=== PATIENT | female | born 1930 | race Caucasian/White ===

== ENCOUNTER 2016-09-07 15:15 | Emergency (ER) | payer OTHER, BC ==
[~2016-09-07] VITALS: Ht 137.2 cm; Wt 45.1 kg
[~2016-09-07 15:15] MED LIST: CENTRUM SILVER1 EAC4 PO; CYANOCOBALAM1000 MCG PO; D3 + K2 DOTS 11 EACH PO; DIOVAN320 MG PO; ELIQUIS5 MG PO; FAMOTIDINE20 MG PO; FOLBIC RF TABL1 EACH PO; FOLIC ACID1 MG PO; LASIX20 MG PO; LEVO-T125 MCG PO; METOPROLOL SUC100 MG PO; METOPROLOL SUCC50 MG PO; TYLENOL REGULA325 MG PO; VITAMIN D31000 UNIT PO
[2016-09-07 16:39] LABS: CHLORIDE 105 mEq/L (99-109); POTASSIUM 4.8 mEq/L (3.7-5.4); SODIUM 139 mEq/L (136-147)
[2016-09-07 16:41] LABS: GLUCOSE 97 mg/dL (70-99)
[2016-09-07 16:42] LABS: ANION GAP 15 MEQ/L (2-14)
[2016-09-07 16:44] LABS: BASOPHIL COUNT 0.1 K/uL (0-0.1); EOSINOPHIL (%) 3.4 % (0-5); EOSINOPHIL COUNT 0.2 K/uL (0-0.3); GFR ESTIMATE (CALCULATED) 28 mL/min/; HEMATOCRIT 17.1 % (36.0-46.0); IMMATURE GRANULOCYTE (%) 0.4 % (0.0-0.7); IMMATURE GRANULOCYTE COUNT 0.3 K/uL; LYMPHOCYTE COUNT 1.9 K/uL (1.0-2.8); MCH 35.9 PG (29.0-34.0); MCHC 32.7 G/DL (30.0-36.0); MCV 110.3 FL (83-99); MONOCYTE (%) 10.2 % (3-12); MONOCYTE COUNT 0.7 K/uL (0-0.8); NEUTROPHIL (%) 57.7 % (45-76); NEUTROPHIL COUNT 4.1 K/uL (1.8-6.4); RBC DIS.WIDTH-CV 25.8 % (11.8-14.6); RBC DIS.WIDTH-SD 89.4 % (39-53); RED BLOOD COUNT 1.56 M/uL (3.80-5.20)
[2016-09-07 16:45] LABS: UREA NITROGEN (BUN) 38 mg/dL (9-23)
[2016-09-07 16:53] LABS: TROP-I INTERPRETATION NEGATIVE; TROPONIN-I 0.13 ng/mL (0.0-0.30)
[2016-09-07 17:28] LABS: HEMATOLOGY COMMENT 1 SMEAR COMPATIBLE; MEAN PLAT.VOLUME 11.7 uM^3 (9.5-12.4); PLAT.SUFFICIENCY INCREASED; PLATELET COUNT 583 K/uL (156-360); USER ID NPD
[2016-09-07] MEDS ORDERED: TYLENOL ARTHRI650 MG PO (18:57)
[2016-09-07] MEDS ORDERED: LASIX40 MG PO (18:59)
[2016-09-07] MEDS ORDERED: POTASSIUM CHLO10 ME3 PO (18:59)
[2016-09-07] MEDS ORDERED: FEOSOL325 MG PO (18:59)
[2016-09-07 20:48] VITALS: BP 120/57
[2016-09-10] MEDS ORDERED: CENTRUM SILVER1 EAC3 PO (09:50)
[2016-09-10] MEDS ORDERED: COUMADIN1 MG PO (09:51)
== END 2016-09-07 21:18 | disposition home or self-care (01) ==
LOC: EME 15:15
PROVIDERS: Emergency Medicine
DX: D64.9 Anemia, unspecified (principal); Z86.718 Personal history of other venous thrombosis and embolism; Z79.01 Long term (current) use of anticoagulants; I50.9 Heart failure, unspecified; E03.9 Hypothyroidism, unspecified; I10 Essential (primary) hypertension
CPT/HCPCS: 80048; 84484; 85025; 86850; 86860; 86870; 86880; 86900; 86901; 86905; 86920; 99281; 99284

== ENCOUNTER → 2016-09-10 | Outpatient (CLI) | payer OTHER, BC ==
[~2016-09-10] VITALS: Ht 137.2 cm; Wt 45.1 kg
[2016-09-10] VITALS (9 sets, daily range): BP systolic 122–154; BP diastolic 57–68
[~2016-09-10] MED LIST changes: +CENTRUM SILVER1 EAC3 PO; +COUMADIN1 MG PO; +FEOSOL325 MG PO; +LASIX40 MG PO; +POTASSIUM CHLO10 ME3 PO; +TYLENOL ARTHRI650 MG PO
[2016-09-10 16:06] LABS: HEMATOCRIT 23.2 % (36.0-46.0); MCH 33.2 PG (29.0-34.0); MCHC 33.6 G/DL (30.0-36.0); MEAN PLAT.VOLUME 11.2 uM^3 (9.5-12.4); PLATELET COUNT 493 K/uL (156-360); RBC DIS.WIDTH-SD 72.8 % (39-53); WHITE BLOOD COUNT 5.6 K/uL (4.1-10.2)
[2016-09-10 16:07] LABS: MCV 98.7 FL (83-99); RED BLOOD COUNT 2.35 M/uL (3.80-5.20)
== END ==
LOC: IVINF 09-08 10:00
PROVIDERS: Emergency Medicine
DX: D51.0 Vitamin B12 deficiency anemia due to intrinsic factor deficiency (principal)
CPT/HCPCS: 36430; 85027; 86850; 86870; 86900; 86901; 86905; 86920; 86999; P9016

== ENCOUNTER 2016-12-26 15:17 | Inpatient (IN) | payer OTHER, BC ==
[~2016-12-26] VITALS: Ht 139.7 cm; Wt 42.0 kg
[2016-12-26] VITALS (7 sets, daily range): BP systolic 112–146; BP diastolic 50–70
[~2016-12-26 15:17] MED LIST changes: +ELIQUIS2.5 MG PO; +IRON325 MG PO; +VALSARTAN320 MG PO
[2016-12-26 16:54] LABS: CHLORIDE 108 mEq/L (99-109); POTASSIUM 4.1 mEq/L (3.7-5.4); SODIUM 141 mEq/L (136-147)
[2016-12-26 16:56] LABS: GLUCOSE 117 mg/dL (70-99)
[2016-12-26 16:57] LABS: ANION GAP 13 MEQ/L (2-14)
[2016-12-26 17:00] LABS: GFR ESTIMATE (CALCULATED) 32 mL/min/
[2016-12-26 17:01] LABS: UREA NITROGEN (BUN) 48 mg/dL (9-23)
[2016-12-26 17:08] LABS: PLATELET COUNT 618 K/uL (156-360)
[2016-12-26 18:07] LABS: HEMATOCRIT 15.6 % (36.0-46.0); MCHC 30.8 G/DL (30.0-36.0); MCV 113.9 FL (83-99); PLAT.SUFFICIENCY INCREASED; RBC DIS.WIDTH-SD 110.2 % (39-53); RED BLOOD COUNT 1.37 M/uL (3.80-5.20); WHITE BLOOD COUNT 7.4 K/uL (4.1-10.2)
[2016-12-26] MEDS ORDERED: IRON325 M1 PO (19:32)
[2016-12-26] MEDS ORDERED: SYNTHROID125 MCG PO (19:35)
[2016-12-27] VITALS (12 sets, daily range): BP systolic 99–139; BP diastolic 51–82
[2016-12-27 07:20] LABS: METH RESISTANT S AUREUS PCR NEGATIVE (NEGATIVE); PROBE CHECK PASS; SPECIMEN PROCESSING CONTROL PASS
[2016-12-27 07:49] LABS: BASOPHIL COUNT 0.1 K/uL (0-0.1); EOSINOPHIL (%) 3.2 % (0-5); EOSINOPHIL COUNT 0.2 K/uL (0-0.3); HEMATOCRIT 24.3 % (36.0-46.0); IMMATURE GRANULOCYTE (%) 0.4 % (0.0-0.7); INSTRUMENT ABS NEUTROPHIL CT 4.7 K/uL; LYMPHOCYTE COUNT 1.6 K/uL (1.0-2.8); MCH 31.3 PG (29.0-34.0); MCHC 33.3 G/DL (30.0-36.0); MEAN PLAT.VOLUME 11.7 uM^3 (9.5-12.4); MONOCYTE (%) 12.7 % (3-12); NEUTROPHIL (%) 62.3 % (45-76); NEUTROPHIL COUNT 4.7 K/uL (1.8-6.4); PLATELET COUNT 521 K/uL (156-360); RBC DIS.WIDTH-CV 25.7 % (11.8-14.6); WHITE BLOOD COUNT 7.6 K/uL (4.1-10.2)
[2016-12-27 07:58] LABS: MCV 93.8 FL (83-99); RED BLOOD COUNT 2.59 M/uL (3.80-5.20)
[2016-12-28 03:30] VITALS: BP 104/51
[2016-12-28 07:10] VITALS: BP 105/51
[2016-12-28 07:57] LABS: BASOPHIL COUNT 0.1 K/uL (0-0.1); EOSINOPHIL (%) 2.1 % (0-5); EOSINOPHIL COUNT 0.2 K/uL (0-0.3); HEMATOCRIT 27.5 % (36.0-46.0); IMMATURE GRANULOCYTE (%) 0.6 % (0.0-0.7); IMMATURE GRANULOCYTE COUNT 0.1 K/uL; INSTRUMENT ABS NEUTROPHIL CT 7.5 K/uL; LYMPHOCYTE COUNT 1.4 K/uL (1.0-2.8); MCH 31.8 PG (29.0-34.0); MCHC 33.5 G/DL (30.0-36.0); MCV 95.2 FL (83-99); MEAN PLAT.VOLUME 11.9 uM^3 (9.5-12.4); MONOCYTE (%) 11.1 % (3-12); MONOCYTE COUNT 1.2 K/uL (0-0.8); NEUTROPHIL (%) 72.2 % (45-76); NEUTROPHIL COUNT 7.5 K/uL (1.8-6.4); PLATELET COUNT 558 K/uL (156-360); RBC DIS.WIDTH-CV 26.2 % (11.8-14.6); RED BLOOD COUNT 2.89 M/uL (3.80-5.20)
[2016-12-28 07:59] LABS: WHITE BLOOD COUNT 10.3 K/uL (4.1-10.2)
== END 2016-12-28 15:42 | disposition home or self-care (01) | DRG 812 ==
LOC: EME 15:17 → 4EAST 20:48 → EDOF 20:48 → 4EAST 22:02
PROVIDERS: Emergency Medicine; Internal Medicine
PROC: 30233N1 Transfusion of Nonautologous Red Blood Cells into Peripheral Vein, Percutaneous Approach (ICD-10-PCS; principal; 2016-12-26)
DX: D46.9 Myelodysplastic syndrome, unspecified (principal); I12.9 Hypertensive chronic kidney disease with stage 1 through stage 4 chronic kidney disease, or unspecified chronic kidney disease; N18.3 Chronic kidney disease, stage 3 (moderate); E03.9 Hypothyroidism, unspecified; Z86.718 Personal history of other venous thrombosis and embolism; K21.9 Gastro-esophageal reflux disease without esophagitis; M19.90 Unspecified osteoarthritis, unspecified site
CPT/HCPCS: 80048; 82607; 82728; 82746; 84466; 85025; 85027; 86860; 86870; 86880; 86900; 86901; 86905; 86920; 87641; 93005; 99281; 99285; P9016

== ENCOUNTER 2017-02-26 09:26 | Emergency (ER) | payer OTHER, BC ==
[2017-02-26] VITALS (8 sets, daily range): BP systolic 102–153; BP diastolic 41–60
[~2017-02-26] VITALS: Ht 139.7 cm; Wt 45.6 kg
[~2017-02-26 09:26] MED LIST changes: +IRON325 M1 PO; +SYNTHROID125 MCG PO
[2017-02-26 10:37] LABS: CHLORIDE 106 mEq/L (99-109); POTASSIUM 4.2 mEq/L (3.7-5.4); SODIUM 141 mEq/L (136-147)
[2017-02-26 10:39] LABS: GLUCOSE 113 mg/dL (70-99); INTER. NORMALIZED RATIO 1.1; PROTHROMBIN TIME 10.9 (9.2-11.2); PTT 26.3 (25-32)
[2017-02-26 10:40] LABS: ANION GAP 12 MEQ/L (2-14)
[2017-02-26 10:43] LABS: GFR ESTIMATE (CALCULATED) 32 mL/min/; UREA NITROGEN (BUN) 34 mg/dL (9-23)
[2017-02-26 10:49] LABS: EOSINOPHIL (%) 3.2 % (0-5); EOSINOPHIL COUNT 0.3 K/uL (0-0.3); HEMATOCRIT 16.4 % (36.0-46.0); IMMATURE GRANULOCYTE (%) 0.6 % (0.0-0.7); IMMATURE GRANULOCYTE COUNT 0.1 K/uL; INSTRUMENT ABS NEUTROPHIL CT 6.8 K/uL; LYMPHOCYTE COUNT 1.9 K/uL (1.0-2.8); MCH 34.4 PG (29.0-34.0); MCHC 31.7 G/DL (30.0-36.0); MCV 108.6 FL (83-99); MEAN PLAT.VOLUME 11.7 uM^3 (9.5-12.4); MONOCYTE (%) 11.3 % (3-12); MONOCYTE COUNT 1.2 K/uL (0-0.8); NEUTROPHIL (%) 66.6 % (45-76); NEUTROPHIL COUNT 6.8 K/uL (1.8-6.4); PLATELET COUNT 684 K/uL (156-360); RBC DIS.WIDTH-CV 28.2 % (11.8-14.6); RBC DIS.WIDTH-SD 101.4 % (39-53); RED BLOOD COUNT 1.51 M/uL (3.80-5.20); WHITE BLOOD COUNT 10.2 K/uL (4.1-10.2)
== END 2017-02-26 16:43 | disposition home or self-care (01) ==
LOC: EME 09:26
PROVIDERS: Emergency Medicine
PROC: 30233N1 Transfusion of Nonautologous Red Blood Cells into Peripheral Vein, Percutaneous Approach (ICD-10-PCS; principal; 2017-02-26)
DX: D64.9 Anemia, unspecified (principal); Z86.718 Personal history of other venous thrombosis and embolism; K21.9 Gastro-esophageal reflux disease without esophagitis; E03.9 Hypothyroidism, unspecified; Z90.49 Acquired absence of other specified parts of digestive tract
CPT/HCPCS: 80048; 85025; 85610; 85730; 86860; 86870; 86880; 86900; 86901; 86920; 86999; 99281; 99285; P9016

== ENCOUNTER 2017-04-25 09:16 | Observation (INO) | payer OTHER, BC ==
[~2017-04-25] VITALS: Ht 137.2 cm; Wt 45.2 kg
[~2017-04-25 09:16] MED LIST changes: +K-TAB10 MEQ PO; -POTASSIUM CHLO10 ME3 PO
[2017-04-25 10:38] LABS: EOSINOPHIL (%) 2.6 % (0-5); EOSINOPHIL COUNT 0.1 K/uL (0-0.3); HEMATOCRIT 14.4 % (36.0-46.0); IMMATURE GRANULOCYTE (%) 0.4 % (0.0-0.7); INSTRUMENT ABS NEUTROPHIL CT 3.7 K/uL; LYMPHOCYTE COUNT 1.1 K/uL (1.0-2.8); MCH 34.6 PG (29.0-34.0); MCHC 31.9 G/DL (30.0-36.0); MCV 108.3 FL (83-99); MEAN PLAT.VOLUME 11.7 uM^3 (9.5-12.4); MONOCYTE (%) 9.5 % (3-12); MONOCYTE COUNT 0.5 K/uL (0-0.8); NEUTROPHIL (%) 67.2 % (45-76); NEUTROPHIL COUNT 3.7 K/uL (1.8-6.4); PLATELET COUNT 528 K/uL (156-360); RBC DIS.WIDTH-CV 26.2 % (11.8-14.6); RBC DIS.WIDTH-SD 93.9 % (39-53); RED BLOOD COUNT 1.33 M/uL (3.80-5.20); WHITE BLOOD COUNT 5.5 K/uL (4.1-10.2)
[2017-04-25 10:42] LABS: CHLORIDE 108 mEq/L (99-109); SODIUM 139 mEq/L (136-147)
[2017-04-25 10:44] LABS: GLUCOSE 99 mg/dL (70-99)
[2017-04-25 10:45] LABS: ANION GAP 11 MEQ/L (2-14)
[2017-04-25 10:48] LABS: GFR ESTIMATE (CALCULATED) 41 mL/min/
[2017-04-25 10:49] LABS: UREA NITROGEN (BUN) 38 mg/dL (9-23)
[2017-04-25 14:00] VITALS: BP 126/56
[2017-04-25 15:30] VITALS: BP 134/60
[2017-04-25 18:36] VITALS: BP 127/56
[2017-04-26] VITALS (17 sets, daily range): BP systolic 116–150; BP diastolic 53–70
[2017-04-26 17:09] LABS: HEMATOCRIT 22.8 % (36.0-46.0)
[2017-04-27] VITALS (7 sets, daily range): BP systolic 145–163; BP diastolic 63–70
== END 2017-04-27 18:12 | disposition home or self-care (01) ==
LOC: EME 09:16 → EDOF 11:32 → 2EAST 11:32 → EDOF 11:32 → ENRESERV 11:39 → 2EAST 13:50
PROVIDERS: Emergency Medicine; Internal Medicine Hematology & Oncology
PROC: 30233N1 Transfusion of Nonautologous Red Blood Cells into Peripheral Vein, Percutaneous Approach (ICD-10-PCS; principal; 2017-04-26)
DX: D46.9 Myelodysplastic syndrome, unspecified (principal); D63.8 Anemia in other chronic diseases classified elsewhere; K21.9 Gastro-esophageal reflux disease without esophagitis; M19.90 Unspecified osteoarthritis, unspecified site; E03.9 Hypothyroidism, unspecified; I50.9 Heart failure, unspecified; Z79.01 Long term (current) use of anticoagulants
CPT/HCPCS: 80048; 85014; 85018; 85025; 86850; 86860; 86870; 86880; 86900; 86901; 86905; 86920; 99281; 99284; G0378; J1644; P9016

== ENCOUNTER 2017-06-21 15:45 | Observation (INO) | payer OTHER, BC ==
[~2017-06-21] VITALS: Ht 144.8 cm; Wt 45.7 kg
[2017-06-21 16:31] LABS: EOSINOPHIL (%) 3.2 % (0-5); EOSINOPHIL COUNT 0.2 K/uL (0-0.3); HEMATOCRIT 13.6 % (36.0-46.0); IMMATURE GRANULOCYTE (%) 0.8 % (0.0-0.7); IMMATURE GRANULOCYTE COUNT 0.1 K/uL; INSTRUMENT ABS NEUTROPHIL CT 3.9 K/uL; LYMPHOCYTE COUNT 1.6 K/uL (1.0-2.8); MCH 33.8 PG (29.0-34.0); MCHC 32.4 G/DL (30.0-36.0); MCV 104.6 FL (83-99); MEAN PLAT.VOLUME 11.6 uM^3 (9.5-12.4); MONOCYTE (%) 11.7 % (3-12); MONOCYTE COUNT 0.8 K/uL (0-0.8); NEUTROPHIL (%) 60.2 % (45-76); NEUTROPHIL COUNT 3.9 K/uL (1.8-6.4); PLATELET COUNT 567 K/uL (156-360); RBC DIS.WIDTH-CV 24.7 % (11.8-14.6); RBC DIS.WIDTH-SD 86.7 % (39-53); WHITE BLOOD COUNT 6.5 K/uL (4.1-10.2)
[2017-06-21 16:32] LABS: CHLORIDE 108 mEq/L (99-109); SODIUM 140 mEq/L (136-147)
[2017-06-21 16:33] LABS: GLUCOSE 113 mg/dL (70-99)
[2017-06-21 16:35] LABS: ANION GAP 9 MEQ/L (2-14)
[2017-06-21 16:37] LABS: GFR ESTIMATE (CALCULATED) 28 mL/min/
[2017-06-21 16:38] LABS: UREA NITROGEN (BUN) 39 mg/dL (9-23)
[2017-06-21 20:41] VITALS: BP 129/63
[2017-06-21 21:09] VITALS: BP 132/60
[2017-06-21 22:09] VITALS: BP 126/54
[2017-06-21 22:34] LABS: URIC ACID 8.4 mg/dL (3.1-9.2)
[2017-06-22 00:04] VITALS: BP 144/66
[2017-06-22 01:00] LABS: INTER. NORMALIZED RATIO 1.4; PROTHROMBIN TIME 15.7 SEC (10.2-12.9)
[2017-06-22 01:02] LABS: PTT 31.5 SEC (25-37)
[2017-06-22 01:04] LABS: TOTAL BILIRUBIN 1.1 mg/dL (0.0-1.0)
[2017-06-22 01:05] LABS: ALKALINE PHOSPHATASE 88 IU/L (3-129)
[2017-06-22 01:07] LABS: DIRECT BILIRUBIN 0.4 mg/dL (0.0-0.3)
[2017-06-22 01:30] VITALS: BP 144/63
[2017-06-22 01:45] VITALS: BP 137/63
[2017-06-22 02:30] VITALS: BP 123/78
[2017-06-22 03:05] LABS: ADD MIUA? YES; BILIRUBIN NEGATIVE; BLOOD SMALL; COLOR YELLOW ((YELLOW)); GLUCOSE (STRIP) NEGATIVE; KETONES NEGATIVE; LEUKOCYTES LARGE; NITRITE NEGATIVE; PROTEIN (STRIP) NEGATIVE; SPECIFIC GRAVITY 1.005 (1.000-1.030); UROBILINOGEN 0.2 MG/DL (0.2-1.0)
[2017-06-22 03:09] LABS: BACTERIA RARE /HPF; EPITHELIAL CELLS NONE SEEN /HPF; MUCUS NONE SEEN /LPF; WHITE BLOOD CELLS TNTC /HPF (0-5); WHITE BLOOD CELLS CLUMP RARE /HPF (0-5)
[2017-06-22 04:15] VITALS: BP 123/60
[2017-06-22 05:48] LABS: HEMATOCRIT 21.5 % (36.0-46.0); MCH 31.6 PG (29.0-34.0); MEAN PLAT.VOLUME 11.3 uM^3 (9.5-12.4); PLATELET COUNT 522 K/uL (156-360); RBC DIS.WIDTH-CV 20.1 % (11.8-14.6); RBC DIS.WIDTH-SD 53.1 % (39-53); WHITE BLOOD COUNT 7.4 K/uL (4.1-10.2)
[2017-06-22 05:49] LABS: MCV 95.6 FL (83-99); RED BLOOD COUNT 2.25 M/uL (3.80-5.20)
[2017-06-22 06:08] LABS: ANION GAP 10 MEQ/L (2-14); CHLORIDE 108 MEQ/L (99-109); GFR ESTIMATE (CALCULATED) 35 mL/min/; GLUCOSE 87 mg/dL (70-99); POTASSIUM 4.3 MEQ/L (3.7-5.4); SAMPLE HEMOLYSIS CHECK 0; SAMPLE ICTERIC CHECK 0; SAMPLE LIPEMIA CHECK 0; SODIUM 142 MEQ/L (136-147); UREA NITROGEN (BUN) 34 mg/dL (9-23)
[2017-06-22 07:25] VITALS: BP 145/63
== END 2017-06-22 14:13 | disposition home or self-care (01) ==
LOC: EME → EDBD 15:45 → EDOF 21:41 → ENRESERV 21:48 → 5WEST 23:58
PROVIDERS: Emergency Medicine; Hospitalist
PROC: 30233N1 Transfusion of Nonautologous Red Blood Cells into Peripheral Vein, Percutaneous Approach (ICD-10-PCS; principal; 2017-06-22)
DX: D46.9 Myelodysplastic syndrome, unspecified (principal); D63.8 Anemia in other chronic diseases classified elsewhere; I13.0 Hypertensive heart and chronic kidney disease with heart failure and stage 1 through stage 4 chronic kidney disease, or unspecified chronic kidney disease; I50.9 Heart failure, unspecified; N17.9 Acute kidney failure, unspecified; N18.3 Chronic kidney disease, stage 3 (moderate); Z86.718 Personal history of other venous thrombosis and embolism; Z79.01 Long term (current) use of anticoagulants; E03.9 Hypothyroidism, unspecified; K21.9 Gastro-esophageal reflux disease without esophagitis; R50.9 Fever, unspecified; D47.3 Essential (hemorrhagic) thrombocythemia; M19.90 Unspecified osteoarthritis, unspecified site; Z90.49 Acquired absence of other specified parts of digestive tract; Z82.49 Family history of ischemic heart disease and other diseases of the circulatory system; Z82.0 Family history of epilepsy and other diseases of the nervous system; Z80.8 Family history of malignant neoplasm of other organs or systems; Z88.1 Allergy status to other antibiotic agents; Z88.2 Allergy status to sulfonamides
CPT/HCPCS: 80048; 80076; 81003; 82436; 84133; 84300; 84550; 85025; 85027; 85610; 85730; 86850; 86870; 86900; 86901; 86905; 86920; 99281; 99285; G0378; J0696; J7050; P9016

== ENCOUNTER 2017-07-16 15:18 | Inpatient (IN) | payer OTHER, BC ==
[~2017-07-16] VITALS: Ht 137.2 cm; Wt 40.8 kg
[2017-07-16 16:47] LABS: CHLORIDE 105 mEq/L (99-109)
[2017-07-16 16:48] LABS: POTASSIUM 4.2 mEq/L (3.7-5.4); SODIUM 142 mEq/L (136-147)
[2017-07-16 16:49] LABS: GLUCOSE 109 mg/dL (70-99)
[2017-07-16 16:51] LABS: ANION GAP 12 MEQ/L (2-14); HEMATOCRIT 17.8 % (36.0-46.0); MCHC 32.6 G/DL (30.0-36.0); MEAN PLAT.VOLUME 11.5 uM^3 (9.5-12.4); PLATELET COUNT 667 K/uL (156-360); RBC DIS.WIDTH-CV 20.5 % (11.8-14.6); WHITE BLOOD COUNT 7.6 K/uL (4.1-10.2)
[2017-07-16 16:52] LABS: MCV 101.1 FL (83-99); RED BLOOD COUNT 1.76 M/uL (3.80-5.20)
[2017-07-16 16:53] LABS: ADD MIUA? YES; BILIRUBIN NEGATIVE; BLOOD MODERATE; COLOR YELLOW ((YELLOW)); GLUCOSE (STRIP) NEGATIVE; KETONES NEGATIVE; LEUKOCYTES LARGE; NITRITE NEGATIVE; PROTEIN (STRIP) 30; SPECIFIC GRAVITY 1.005 (1.000-1.030); UROBILINOGEN 0.2 MG/DL (0.2-1.0)
[2017-07-16 16:53] LABS: GFR ESTIMATE (CALCULATED) 38 mL/min/
[2017-07-16 16:54] LABS: UREA NITROGEN (BUN) 28 mg/dL (9-23)
[2017-07-16 17:12] LABS: UCUL ADDED? YES; WHITE BLOOD CELLS TNTC /HPF (0-5)
[2017-07-16 21:28] VITALS: BP 146/70
[2017-07-16 23:48] VITALS: BP 137/62
[2017-07-17] VITALS (11 sets, daily range): BP systolic 125–157; BP diastolic 59–70
[2017-07-17 11:19] LABS: HEMATOCRIT 28.8 % (36.0-46.0); MCH 30.4 PG (29.0-34.0); MCHC 33.3 G/DL (30.0-36.0); MEAN PLAT.VOLUME 10.9 uM^3 (9.5-12.4); PLATELET COUNT 674 K/uL (156-360); RBC DIS.WIDTH-CV 19.6 % (11.8-14.6); WHITE BLOOD COUNT 10.8 K/uL (4.1-10.2)
[2017-07-17 11:25] LABS: MCV 91.1 FL (83-99); RED BLOOD COUNT 3.16 M/uL (3.80-5.20)
[2017-07-18 06:04] LABS: HEMATOCRIT 27.3 % (36.0-46.0); MCH 31.3 PG (29.0-34.0); MCHC 34.1 G/DL (30.0-36.0); MCV 91.9 FL (83-99); PLATELET COUNT 542 K/uL (156-360); RBC DIS.WIDTH-CV 19.8 % (11.8-14.6); RBC DIS.WIDTH-SD 54.3 % (39-53); RED BLOOD COUNT 2.97 M/uL (3.80-5.20); WHITE BLOOD COUNT 8.8 K/uL (4.1-10.2)
[2017-07-18 07:27] VITALS: BP 151/70
[2017-07-18 16:05] VITALS: BP 138/64
[2017-07-18 23:33] VITALS: BP 108/53
[2017-07-19 06:15] LABS: HEMATOCRIT 26.8 % (36.0-46.0); MCH 31.1 PG (29.0-34.0); MCHC 33.2 G/DL (30.0-36.0); MCV 93.7 FL (83-99); MEAN PLAT.VOLUME 11.3 uM^3 (9.5-12.4); PLATELET COUNT 490 K/uL (156-360); RBC DIS.WIDTH-SD 55.5 % (39-53); RED BLOOD COUNT 2.86 M/uL (3.80-5.20); WHITE BLOOD COUNT 8.6 K/uL (4.1-10.2)
[2017-07-19 07:48] VITALS: BP 119/85
[2017-07-19 07:57] LABS: ALKALINE PHOSPHATASE 83 IU/L (3-129); ANION GAP 12 MEQ/L (2-14); CHLORIDE 106 MEQ/L (99-109); GFR ESTIMATE (CALCULATED) 35 mL/min/; GLUCOSE 83 mg/dL (70-99); POTASSIUM 4.3 MEQ/L (3.7-5.4); SAMPLE HEMOLYSIS CHECK 0; SAMPLE ICTERIC CHECK 0; SAMPLE LIPEMIA CHECK 0; SODIUM 143 MEQ/L (136-147); TOTAL BILIRUBIN 0.5 MG/DL (0.0-1.0); UREA NITROGEN (BUN) 40 mg/dL (9-23)
[2017-07-19 16:23] VITALS: BP 129/70
[2017-07-19 23:01] VITALS: BP 125/58
[2017-07-20 06:51] VITALS: BP 144/63
[2017-07-20 08:29] LABS: HEMATOCRIT 29.9 % (36.0-46.0); MCH 31.2 PG (29.0-34.0); MCHC 33.1 G/DL (30.0-36.0); MCV 94.3 FL (83-99); MEAN PLAT.VOLUME 11.2 uM^3 (9.5-12.4); PLATELET COUNT 506 K/uL (156-360); RBC DIS.WIDTH-CV 18.6 % (11.8-14.6); RBC DIS.WIDTH-SD 56.3 % (39-53); RED BLOOD COUNT 3.17 M/uL (3.80-5.20); WHITE BLOOD COUNT 6.5 K/uL (4.1-10.2)
[2017-07-20 15:15] VITALS: BP 133/59
[2017-07-21 00:15] VITALS: BP 114/58
[2017-07-21 06:47] VITALS: BP 141/72
== END 2017-07-21 13:17 | disposition home or self-care (01) | DRG 378 ==
LOC: EME 15:18 → 5EAST 18:15 → EDOF 18:15 → ENRESERV 18:45 → 5EAST 21:02 → ENPENDDIS 07-21 → 5EAST 07-21 13:17
PROVIDERS: Emergency Medicine; Family Medicine; Internal Medicine
PROC: 30233N1 Transfusion of Nonautologous Red Blood Cells into Peripheral Vein, Percutaneous Approach (ICD-10-PCS; principal; 2017-07-17)
DX: K92.2 Gastrointestinal hemorrhage, unspecified (principal); N30.01 Acute cystitis with hematuria; D46.9 Myelodysplastic syndrome, unspecified; I13.0 Hypertensive heart and chronic kidney disease with heart failure and stage 1 through stage 4 chronic kidney disease, or unspecified chronic kidney disease; E03.9 Hypothyroidism, unspecified; Z86.718 Personal history of other venous thrombosis and embolism; K21.9 Gastro-esophageal reflux disease without esophagitis; I50.30 Unspecified diastolic (congestive) heart failure; N18.3 Chronic kidney disease, stage 3 (moderate); M19.90 Unspecified osteoarthritis, unspecified site; Z79.01 Long term (current) use of anticoagulants; B96.20 Unspecified Escherichia coli [E. coli] as the cause of diseases classified elsewhere
CPT/HCPCS: 80048; 80053; 81003; 85027; 86850; 86870; 86900; 86901; 86905; 86920; 87077; 87086 GA; 87186; 99281; 99285; J0696; P9016

== ENCOUNTER 2017-09-04 17:40 | Emergency (ER) | payer OTHER, BC ==
[~2017-09-04] VITALS: Ht 137.2 cm; Wt 45.8 kg
[2017-09-04 18:30] LABS: CHLORIDE 105 mEq/L (99-109); POTASSIUM 3.6 mEq/L (3.7-5.4); SODIUM 138 mEq/L (136-147)
[2017-09-04 18:32] LABS: GLUCOSE 101 mg/dL (70-99)
[2017-09-04 18:36] LABS: CREATININE 1.5 mg/dL (0.6-1.3); GFR ESTIMATE (CALCULATED) 35 mL/min/; HEMATOCRIT 14.2 % (36.0-46.0); MCH 32.6 PG (29.0-34.0); MCHC 33.1 G/DL (30.0-36.0); MCV 98.6 FL (83-99); PLATELET COUNT 589 K/uL (156-360); RBC DIS.WIDTH-CV 24.5 % (11.8-14.6); RBC DIS.WIDTH-SD 77.3 % (39-53); RED BLOOD COUNT 1.44 M/uL (3.80-5.20); WHITE BLOOD COUNT 6.3 K/uL (4.1-10.2)
[2017-09-04 18:37] LABS: UREA NITROGEN (BUN) 33 mg/dL (9-23)
[2017-09-04 18:40] LABS: HEMOGLOBIN 4.7 G/DL (11.9-15.5)
[2017-09-04] MEDS ORDERED: ELIQUIS2.5 MG PO (22:09)
[2017-09-05] VITALS (9 sets, daily range): BP systolic 122–161; BP diastolic 53–70
== END 2017-09-05 10:56 | disposition home or self-care (01) ==
LOC: EME 17:40
PROVIDERS: Emergency Medicine
PROC: 30233N1 Transfusion of Nonautologous Red Blood Cells into Peripheral Vein, Percutaneous Approach (ICD-10-PCS; principal; 2017-09-04)
DX: D46.9 Myelodysplastic syndrome, unspecified (principal); E03.9 Hypothyroidism, unspecified; I10 Essential (primary) hypertension; Z86.718 Personal history of other venous thrombosis and embolism; Z79.01 Long term (current) use of anticoagulants
CPT/HCPCS: 80048; 85027; 86850; 86870; 86900; 86901; 86920; 99281; 99285; P9016

== ENCOUNTER 2017-10-28 17:51 | Inpatient (IN) | payer OTHER, BC ==
[~2017-10-28] VITALS: Ht 137.2 cm; Wt 46.9 kg
[2017-10-28 20:06] LABS: CHLORIDE 104 mEq/L (99-109); POTASSIUM 3.7 mEq/L (3.7-5.4); SODIUM 139 mEq/L (136-147)
[2017-10-28 20:07] LABS: HEMATOCRIT 14.6 % (36.0-46.0); MCH 33.6 PG (29.0-34.0); MCHC 32.9 G/DL (30.0-36.0); MCV 102.1 FL (83-99); PLATELET COUNT 708 K/uL (156-360); RBC DIS.WIDTH-CV 25.2 % (11.8-14.6); RBC DIS.WIDTH-SD 84.9 % (39-53); RED BLOOD COUNT 1.43 M/uL (3.80-5.20); WHITE BLOOD COUNT 7.9 K/uL (4.1-10.2)
[2017-10-28 20:08] LABS: GLUCOSE 104 mg/dL (70-99)
[2017-10-28 20:09] LABS: HEMOGLOBIN 4.8 G/DL (11.9-15.5)
[2017-10-28 20:12] LABS: CREATININE 1.7 mg/dL (0.6-1.3); GFR ESTIMATE (CALCULATED) 30 mL/min/
[2017-10-28 20:13] LABS: UREA NITROGEN (BUN) 42 mg/dL (9-23)
[2017-10-28 23:41] VITALS: BP 110/45
[2017-10-29] VITALS (8 sets, daily range): BP systolic 119–161; BP diastolic 49–70
[2017-10-29 04:25] LABS: APPEARANCE CLOUDY ((CLEAR)); BILIRUBIN NEGATIVE; BLOOD SMALL; COLOR YELLOW ((YELLOW)); GLUCOSE (STRIP) NEGATIVE; KETONES NEGATIVE; LEUKOCYTES LARGE; NITRITE NEGATIVE; PROTEIN (STRIP) NEGATIVE; SPECIFIC GRAVITY 1.004 (1.000-1.030); UROBILINOGEN 0.2 MG/DL (0.2-1.0)
[2017-10-29 04:40] LABS: EPITHELIAL CELLS RARE /HPF; MUCUS NONE SEEN /LPF; RED BLOOD CELLS 15-20 /HPF (0-5); UCUL ADDED? YES; WHITE BLOOD CELLS TNTC /HPF (0-5)
[2017-10-29 04:41] LABS: BACTERIA 1+ /HPF
[2017-10-29 05:32] LABS: INTER. NORMALIZED RATIO 1.4
[2017-10-29 05:36] LABS: HEMATOCRIT 23.1 % (36.0-46.0); MCH 30.6 PG (29.0-34.0); MCHC 33.8 G/DL (30.0-36.0); PLATELET COUNT 561 K/uL (156-360); WHITE BLOOD COUNT 10.6 K/uL (4.1-10.2)
[2017-10-29 05:38] LABS: HEMOGLOBIN 7.8 G/DL (11.9-15.5); MCV 90.6 FL (83-99); RED BLOOD COUNT 2.55 M/uL (3.80-5.20)
[2017-10-29 05:56] LABS: ALKALINE PHOSPHATASE 84 IU/L (3-129); ALT (GPT) 6 IU/L (3-49); AST (GOT) 9 IU/L (2-34); CHLORIDE 106 MEQ/L (99-109); CREATININE 1.4 MG/DL (0.6-1.3); GFR ESTIMATE (CALCULATED) 38 mL/min/; GLUCOSE 92 mg/dL (70-99); POTASSIUM 3.6 MEQ/L (3.7-5.4); SODIUM 144 MEQ/L (136-147); TOTAL BILIRUBIN 0.9 MG/DL (0.0-1.0); TOTAL PROTEIN 6.3 G/DL (6.4-8.3); UREA NITROGEN (BUN) 40 mg/dL (9-23)
== END 2017-10-29 13:30 | disposition home or self-care (01) | DRG 812 ==
LOC: EME 17:51 → EDOF 23:56 → ENRESERV 23:59 → 5WEST 10-29 01:52
PROVIDERS: Hospitalist
PROC: 30233N1 Transfusion of Nonautologous Red Blood Cells into Peripheral Vein, Percutaneous Approach (ICD-10-PCS; principal; 2017-10-28)
DX: D46.9 Myelodysplastic syndrome, unspecified (principal); D63.8 Anemia in other chronic diseases classified elsewhere; D50.9 Iron deficiency anemia, unspecified; E03.9 Hypothyroidism, unspecified; I11.0 Hypertensive heart disease with heart failure; I50.9 Heart failure, unspecified; K21.9 Gastro-esophageal reflux disease without esophagitis; M19.90 Unspecified osteoarthritis, unspecified site; R79.89 Other specified abnormal findings of blood chemistry; Z82.49 Family history of ischemic heart disease and other diseases of the circulatory system; Z86.718 Personal history of other venous thrombosis and embolism; Z79.01 Long term (current) use of anticoagulants; Z88.2 Allergy status to sulfonamides; Z88.1 Allergy status to other antibiotic agents
CPT/HCPCS: 80048; 80053; 81003; 85027; 85610; 85730; 86850; 86870; 86900; 86901; 86905; 86920; 87077; 87086; 87186; 99281; 99284; G0378; J1940; P9016

== ENCOUNTER 2017-12-02 12:01 | Observation (INO) | payer OTHER, BC ==
[~2017-12-02] VITALS: Ht 137.2 cm; Wt 43.7 kg
[2017-12-02 14:05] LABS: INTER. NORMALIZED RATIO 1.7
[2017-12-02 14:06] LABS: HEMATOCRIT 13.3 % (36.0-46.0); MCH 32.1 PG (29.0-34.0); MCHC 32.3 G/DL (30.0-36.0); MCV 99.3 FL (83-99); PLATELET COUNT 525 K/uL (156-360); RBC DIS.WIDTH-CV 26.8 % (11.8-14.6); RBC DIS.WIDTH-SD 87.6 % (39-53); RED BLOOD COUNT 1.34 M/uL (3.80-5.20)
[2017-12-02 14:07] LABS: CHLORIDE 107 mEq/L (99-109); HEMOGLOBIN 4.3 G/DL (11.9-15.5); SODIUM 141 mEq/L (136-147)
[2017-12-02 14:08] LABS: PTT 32.9 SEC (25-37)
[2017-12-02 14:09] LABS: GLUCOSE 102 mg/dL (70-99)
[2017-12-02 14:11] LABS: TOTAL BILIRUBIN 0.5 mg/dL (0.0-1.0)
[2017-12-02 14:13] LABS: ALKALINE PHOSPHATASE 110 IU/L (3-129); CREATININE 1.5 mg/dL (0.6-1.3); GFR ESTIMATE (CALCULATED) 35 mL/min/
[2017-12-02 14:14] LABS: UREA NITROGEN (BUN) 40 mg/dL (9-23)
[2017-12-02 14:15] LABS: AST (GOT) 11 IU/L (2-34); DIRECT BILIRUBIN 0.2 mg/dL (0.0-0.3)
[2017-12-02 14:16] LABS: ALT (GPT) 8 IU/L (3-49)
[2017-12-02 14:20] LABS: TROP-I INTERPRETATION NEGATIVE; TROPONIN-I 0.02 ng/mL (0.0-0.30)
[2017-12-02 15:03] LABS: FERRITIN 1302 NG/ML (10-291)
[2017-12-02 15:52] LABS: TRANSFERRIN (TIBC) 148.9 mg/dL (215-380)
[2017-12-02 18:42] VITALS: BP 136/52
[2017-12-02 19:02] VITALS: BP 127/106
[2017-12-02 19:45] VITALS: BP 150/65; BP 151/65
[2017-12-03] VITALS (9 sets, daily range): BP systolic 105–145; BP diastolic 41–71
[2017-12-03 09:16] LABS: CHLORIDE 104 MEQ/L (99-109); CREATININE 1.4 MG/DL (0.6-1.3); GFR ESTIMATE (CALCULATED) 38 mL/min/; GLUCOSE 107 mg/dL (70-99); POTASSIUM 4.1 MEQ/L (3.7-5.4); SODIUM 139 MEQ/L (136-147); UREA NITROGEN (BUN) 39 mg/dL (9-23)
[2017-12-03 09:47] LABS: BASOPHIL (%) 1.1 % (0-1); BASOPHIL COUNT 0.1 K/uL (0-0.1); EOSINOPHIL (%) 1.4 % (0-5); EOSINOPHIL COUNT 0.1 K/uL (0-0.3); HEMATOCRIT 27.1 % (36.0-46.0); IMMATURE GRANULOCYTE (%) 0.4 % (0.0-0.7); LYMPHOCYTE (%) 11.7 % (15-42); LYMPHOCYTE COUNT 1.1 K/uL (1.0-2.8); MCHC 33.2 G/DL (30.0-36.0); MONOCYTE (%) 11.5 % (3-12); MONOCYTE COUNT 1.1 K/uL (0-0.8); NEUTROPHIL (%) 73.9 % (45-76); NEUTROPHIL COUNT 6.8 K/uL (1.8-6.4); PLATELET COUNT 496 K/uL (156-360); RBC DIS.WIDTH-SD 47.1 % (39-53); WHITE BLOOD COUNT 9.2 K/uL (4.1-10.2)
[2017-12-03 09:49] LABS: MCV 90.3 FL (83-99)
[2017-12-03] MEDS ORDERED: VALSARTAN40 MG PO (15:48)
[2017-12-03] MEDS ORDERED: LASIX20 MG PO (15:48)
== END 2017-12-03 18:28 | disposition home or self-care (01) ==
LOC: EME 12:01 → 4EAST 16:20 → EDOF 16:20 → 4EAST 16:20 → ENRESERV 16:34 → 4EAST 19:45
PROVIDERS: Emergency Medicine; Internal Medicine
PROC: 30233N1 Transfusion of Nonautologous Red Blood Cells into Peripheral Vein, Percutaneous Approach (ICD-10-PCS; principal; 2017-12-02)
PROC: B246ZZZ Ultrasonography of Right and Left Heart (ICD-10-PCS; 2017-12-03)
DX: D46.9 Myelodysplastic syndrome, unspecified (principal); D63.1 Anemia in chronic kidney disease; D47.3 Essential (hemorrhagic) thrombocythemia; I13.0 Hypertensive heart and chronic kidney disease with heart failure and stage 1 through stage 4 chronic kidney disease, or unspecified chronic kidney disease; I50.9 Heart failure, unspecified; N18.3 Chronic kidney disease, stage 3 (moderate); I08.3 Combined rheumatic disorders of mitral, aortic and tricuspid valves; I27.20 Pulmonary hypertension, unspecified; E03.9 Hypothyroidism, unspecified; Z86.718 Personal history of other venous thrombosis and embolism; Z88.1 Allergy status to other antibiotic agents; Z88.2 Allergy status to sulfonamides; Z82.49 Family history of ischemic heart disease and other diseases of the circulatory system; Z82.0 Family history of epilepsy and other diseases of the nervous system
CPT/HCPCS: 71045; 80048; 80053; 82248; 82728; 82746; 83880; 84466; 84484; 85025; 85027; 85610; 85730; 86850; 86870; 86900; 86901; 86905; 86920; 93306; 99281; 99285; G0378; J1940; P9016

== ENCOUNTER 2018-01-20 03:07 | Inpatient (IN) | payer OTHER, BC ==
[2018-01-20] VITALS (7 sets, daily range): BP systolic 102–140; BP diastolic 46–74
[~2018-01-20] VITALS: Ht 137.2 cm; Wt 48.5 kg
[~2018-01-20 03:07] MED LIST changes: +VALSARTAN40 MG PO
[2018-01-20 03:28] LABS: HEMATOCRIT 14.3 % (36.0-46.0); MCH 32.4 PG (29.0-34.0); MCHC 32.9 G/DL (30.0-36.0); MCV 98.6 FL (83-99); PLATELET COUNT 624 K/uL (156-360); RBC DIS.WIDTH-CV 23.4 % (11.8-14.6); RED BLOOD COUNT 1.45 M/uL (3.80-5.20)
[2018-01-20 03:29] LABS: HEMOGLOBIN 4.7 G/DL (11.9-15.5)
[2018-01-20 03:31] LABS: INTER. NORMALIZED RATIO 1.5
[2018-01-20 03:33] LABS: PTT 31.7 SEC (25-37)
[2018-01-20 03:36] LABS: ALBUMIN 3.9 g/dL (3.2-4.8)
[2018-01-20 03:37] LABS: CHLORIDE 106 mEq/L (99-109); POTASSIUM 3.9 mEq/L (3.7-5.4); SODIUM 138 mEq/L (136-147)
[2018-01-20 03:39] LABS: GLUCOSE 112 mg/dL (70-99); TOTAL PROTEIN 6.9 g/dL (6.4-8.3)
[2018-01-20 03:41] LABS: TOTAL BILIRUBIN 0.6 mg/dL (0.0-1.0)
[2018-01-20 03:42] LABS: ALKALINE PHOSPHATASE 115 IU/L (3-129)
[2018-01-20 03:43] LABS: CREATININE 1.6 mg/dL (0.6-1.3); GFR ESTIMATE (CALCULATED) 32 mL/min/
[2018-01-20 03:44] LABS: AST (GOT) 11 IU/L (2-34); UREA NITROGEN (BUN) 41 mg/dL (9-23)
[2018-01-20 03:45] LABS: ALT (GPT) 9 IU/L (3-49)
[2018-01-20 03:46] LABS: LIPASE 46 U/L (1.0-51.0); TROP-I INTERPRETATION NEGATIVE; TROPONIN-I 0.02 ng/mL (0.0-0.30)
[2018-01-20 11:33] LABS: TROP-I INTERPRETATION NEGATIVE; TROPONIN-I 0.28 ng/mL (0.0-0.30)
[2018-01-20] MEDS ORDERED: LASIX40 MG PO (13:30)
[2018-01-20] MEDS ORDERED: DIOVAN320 MG PO (13:31)
[2018-01-20 19:35] LABS: TROP-I INTERPRETATION POSITIVE; TROPONIN-I 1.24 ng/mL (0.0-0.30)
[2018-01-21] VITALS (16 sets, daily range): BP systolic 90–121; BP diastolic 47–65
[2018-01-21 05:46] LABS: BASOPHIL (%) 0.9 % (0-1); BASOPHIL COUNT 0.1 K/uL (0-0.1); EOSINOPHIL (%) 0.5 % (0-5); EOSINOPHIL COUNT 0.1 K/uL (0-0.3); HEMATOCRIT 18.7 % (36.0-46.0); IMMATURE GRANULOCYTE (%) 0.5 % (0.0-0.7); LYMPHOCYTE (%) 6.3 % (15-42); LYMPHOCYTE COUNT 0.8 K/uL (1.0-2.8); MCH 31.3 PG (29.0-34.0); MCHC 33.2 G/DL (30.0-36.0); MONOCYTE COUNT 1.2 K/uL (0-0.8); NEUTROPHIL (%) 82.8 % (45-76); PLATELET COUNT 470 K/uL (156-360); RBC DIS.WIDTH-CV 18.8 % (11.8-14.6); RBC DIS.WIDTH-SD 52.2 % (39-53); WHITE BLOOD COUNT 13.3 K/uL (4.1-10.2)
[2018-01-21 05:51] LABS: HEMOGLOBIN 6.2 G/DL (11.9-15.5); RED BLOOD COUNT 1.98 M/uL (3.80-5.20)
[2018-01-21 05:52] LABS: MCV 94.4 FL (83-99)
[2018-01-22] VITALS (9 sets, daily range): BP systolic 103–132; BP diastolic 53–74
[2018-01-22 05:09] LABS: BASOPHIL (%) 1.1 % (0-1); BASOPHIL COUNT 0.1 K/uL (0-0.1); EOSINOPHIL (%) 2.6 % (0-5); EOSINOPHIL COUNT 0.3 K/uL (0-0.3); HEMATOCRIT 25.2 % (36.0-46.0); IMMATURE GRANULOCYTE (%) 0.5 % (0.0-0.7); LYMPHOCYTE (%) 10.6 % (15-42); LYMPHOCYTE COUNT 1.1 K/uL (1.0-2.8); MCH 31.3 PG (29.0-34.0); MCHC 34.9 G/DL (30.0-36.0); MONOCYTE (%) 10.6 % (3-12); MONOCYTE COUNT 1.1 K/uL (0-0.8); NEUTROPHIL (%) 74.6 % (45-76); NEUTROPHIL COUNT 7.8 K/uL (1.8-6.4); PLATELET COUNT 392 K/uL (156-360); RBC DIS.WIDTH-CV 18.6 % (11.8-14.6); RBC DIS.WIDTH-SD 53.1 % (39-53); WHITE BLOOD COUNT 10.4 K/uL (4.1-10.2)
[2018-01-22 05:10] LABS: RED BLOOD COUNT 2.81 M/uL (3.80-5.20)
[2018-01-22 05:11] LABS: HEMOGLOBIN 8.8 G/DL (11.9-15.5); MCV 89.7 FL (83-99)
[2018-01-22 05:25] LABS: CHLORIDE 101 mEq/L (99-109); POTASSIUM 3.8 mEq/L (3.7-5.4); SODIUM 132 mEq/L (136-147)
[2018-01-22 05:27] LABS: GLUCOSE 109 mg/dL (70-99)
[2018-01-22 05:31] LABS: CREATININE 1.8 mg/dL (0.6-1.3); GFR ESTIMATE (CALCULATED) 28 mL/min/
[2018-01-22 05:32] LABS: UREA NITROGEN (BUN) 49 mg/dL (9-23)
[2018-01-22 06:39] LABS: HDL CHOLESTEROL 39 MG/DL (Desirable>=50); LDL CHOLESTEROL 42 mg/dL (Desirable<100); NON-HDL CHOLESTEROL 65 mg/dL (Desirable<160); TOTAL CHOLESTEROL 104 mg/dL (Desirable<200); TRIGLYCERIDES 115 MG/DL (Normal: <150)
[2018-01-23 03:52] VITALS: BP 104/52; BP 114/59
[2018-01-23 08:31] VITALS: BP 134/60
[2018-01-23 12:18] VITALS: BP 104/53
[2018-01-23] MEDS ORDERED: LASIX20 MG PO (13:23)
== END 2018-01-23 15:37 | disposition home or self-care (01) | DRG 811 ==
LOC: EME → EDBD 03:07 → EDOF 04:50 → 4EAST 04:50 → ENRESERV 05:20 → 4EAST 08:05
PROVIDERS: Emergency Medicine; Internal Medicine
PROC: 30233N1 Transfusion of Nonautologous Red Blood Cells into Peripheral Vein, Percutaneous Approach (ICD-10-PCS; principal; 2018-01-20)
DX: D46.9 Myelodysplastic syndrome, unspecified (principal); I21.A1 Myocardial infarction type 2; N18.3 Chronic kidney disease, stage 3 (moderate); I12.9 Hypertensive chronic kidney disease with stage 1 through stage 4 chronic kidney disease, or unspecified chronic kidney disease; E03.9 Hypothyroidism, unspecified; R50.84 Febrile nonhemolytic transfusion reaction; T45.8X5A Adverse effect of other primarily systemic and hematological agents, initial encounter; Z86.718 Personal history of other venous thrombosis and embolism; I42.9 Cardiomyopathy, unspecified; I27.20 Pulmonary hypertension, unspecified; I08.3 Combined rheumatic disorders of mitral, aortic and tricuspid valves; J98.11 Atelectasis; Z79.01 Long term (current) use of anticoagulants
CPT/HCPCS: 71045; 80048; 80053; 80061; 83690; 83880; 84484; 85025; 85027; 85610; 85730; 86850; 86870; 86900; 86901; 86905; 86920; 87040; 93005; 94799; 99281; 99285; P9016

== ENCOUNTER 2018-01-28 08:58 | Inpatient (IN) | payer OTHER, BC ==
[~2018-01-28] VITALS: Ht 137.2 cm; Wt 43.6 kg
[2018-01-28 09:43] LABS: CARBON DIOXIDE (BICARBONATE) 22.1 MEQ/L (20-31)
[2018-01-28 09:49] LABS: BASOPHIL (%) 0.7 % (0-1); BASOPHIL COUNT 0.1 K/uL (0-0.1); EOSINOPHIL (%) 0.2 % (0-5); HEMATOCRIT 27.2 % (36.0-46.0); HEMOGLOBIN 9.1 G/DL (11.9-15.5); IMMATURE GRANULOCYTE (%) 0.6 % (0.0-0.7); INTER. NORMALIZED RATIO 1.6; LYMPHOCYTE (%) 5.4 % (15-42); LYMPHOCYTE COUNT 0.8 K/uL (1.0-2.8); MCH 31.6 PG (29.0-34.0); MCHC 33.5 G/DL (30.0-36.0); MCV 94.4 FL (83-99); MONOCYTE COUNT 1.5 K/uL (0-0.8); NEUTROPHIL (%) 83.1 % (45-76); NEUTROPHIL COUNT 12.5 K/uL (1.8-6.4); PLATELET COUNT 493 K/uL (156-360); RBC DIS.WIDTH-CV 18.4 % (11.8-14.6); RBC DIS.WIDTH-SD 56.3 % (39-53); RED BLOOD COUNT 2.88 M/uL (3.80-5.20)
[2018-01-28 10:04] LABS: TROP-I INTERPRETATION NEGATIVE; TROPONIN-I 0.07 ng/mL (0.0-0.30)
[2018-01-28 10:13] LABS: ALBUMIN 3.7 g/dL (3.2-4.8); CHLORIDE 107 mEq/L (99-109); POTASSIUM 3.6 mEq/L (3.7-5.4)
[2018-01-28 10:15] LABS: GLUCOSE 115 mg/dL (70-99); TOTAL PROTEIN 6.9 g/dL (6.4-8.3)
[2018-01-28 10:17] LABS: TOTAL BILIRUBIN 0.9 mg/dL (0.0-1.0)
[2018-01-28 10:18] LABS: ALKALINE PHOSPHATASE 92 IU/L (3-129)
[2018-01-28 10:19] LABS: CREATININE 1.5 mg/dL (0.6-1.3); GFR ESTIMATE (CALCULATED) 35 mL/min/
[2018-01-28 10:20] LABS: AST (GOT) 10 IU/L (2-34); UREA NITROGEN (BUN) 30 mg/dL (9-23)
[2018-01-28 10:21] LABS: SODIUM 139 mEq/L (136-147)
[2018-01-28 10:22] LABS: ALT (GPT) 7 IU/L (3-49)
[2018-01-28 11:12] LABS: APPEARANCE SL.HAZY ((CLEAR)); BILIRUBIN NEGATIVE; BLOOD SMALL; COLOR YELLOW ((YELLOW)); GLUCOSE (STRIP) NEGATIVE; KETONES NEGATIVE; LEUKOCYTES LARGE; NITRITE NEGATIVE; PROTEIN (STRIP) 30; SPECIFIC GRAVITY 1.005 (1.000-1.030); UROBILINOGEN 0.2 MG/DL (0.2-1.0)
[2018-01-28 11:36] LABS: WHITE BLOOD CELLS 20-30 /HPF (0-5)
[2018-01-28 11:37] LABS: AMORPHOUS URATES CRYSTALS 1+; BACTERIA 1+ /HPF; EPITHELIAL CELLS RARE /HPF; MUCUS NONE SEEN /LPF; UCUL ADDED? YES
[2018-01-28] MEDS ORDERED: LASIX40 MG PO (14:09)
[2018-01-28] MEDS ORDERED: DIOVAN320 MG PO (14:12)
[2018-01-28] MEDS ORDERED: FUROSEMIDE20 MG PO (14:13)
[2018-01-28] MEDS ORDERED: FAMOTIDINE20 MG PO (14:13)
[2018-01-28 14:20] VITALS: BP 155/65
[2018-01-28 17:08] LABS: TROP-I INTERPRETATION NEGATIVE; TROPONIN-I 0.15 ng/mL (0.0-0.30)
[2018-01-28 19:20] VITALS: BP 109/53
[2018-01-28 23:58] VITALS: BP 128/61
[2018-01-29 03:58] VITALS: BP 124/66
[2018-01-29 07:12] LABS: BASOPHIL (%) 0.8 % (0-1); BASOPHIL COUNT 0.2 K/uL (0-0.1); EOSINOPHIL (%) 0.3 % (0-5); EOSINOPHIL COUNT 0.1 K/uL (0-0.3); HEMOGLOBIN 9.9 G/DL (11.9-15.5); IMMATURE GRANULOCYTE (%) 0.8 % (0.0-0.7); LYMPHOCYTE (%) 5.5 % (15-42); LYMPHOCYTE COUNT 1.2 K/uL (1.0-2.8); MCH 31.3 PG (29.0-34.0); MCHC 31.9 G/DL (30.0-36.0); MCV 98.1 FL (83-99); MONOCYTE (%) 6.9 % (3-12); MONOCYTE COUNT 1.6 K/uL (0-0.8); NEUTROPHIL (%) 85.7 % (45-76); NEUTROPHIL COUNT 19.2 K/uL (1.8-6.4); PLATELET COUNT 608 K/uL (156-360); RBC DIS.WIDTH-SD 59.9 % (39-53); RED BLOOD COUNT 3.16 M/uL (3.80-5.20); WHITE BLOOD COUNT 22.4 K/uL (4.1-10.2)
[2018-01-29 07:27] VITALS: BP 133/63
[2018-01-29 08:38] LABS: CHLORIDE 107 MEQ/L (99-109); CREATININE 1.7 MG/DL (0.6-1.3); GFR ESTIMATE (CALCULATED) 30 mL/min/; GLUCOSE 85 mg/dL (70-99); POTASSIUM 4.5 MEQ/L (3.7-5.4); SODIUM 142 MEQ/L (136-147); UREA NITROGEN (BUN) 32 mg/dL (9-23)
[2018-01-29 16:04] VITALS: BP 125/60
[2018-01-29 20:02] VITALS: BP 123/63
[2018-01-29 23:27] VITALS: BP 129/66
[2018-01-30 04:07] VITALS: BP 106/53
[2018-01-30 08:27] VITALS: BP 116/52
[2018-01-30 11:58] VITALS: BP 94/50
[2018-01-30 19:53] VITALS: BP 128/59
[2018-01-30 23:37] VITALS: BP 104/57
[2018-01-31] VITALS (7 sets, daily range): BP systolic 96–127; BP diastolic 53–60
[2018-01-31 05:51] LABS: BASOPHIL (%) 0.6 % (0-1); BASOPHIL COUNT 0.1 K/uL (0-0.1); EOSINOPHIL (%) 1.7 % (0-5); EOSINOPHIL COUNT 0.2 K/uL (0-0.3); HEMATOCRIT 22.7 % (36.0-46.0); IMMATURE GRANULOCYTE (%) 0.8 % (0.0-0.7); LYMPHOCYTE COUNT 1.1 K/uL (1.0-2.8); MCH 29.9 PG (29.0-34.0); MCHC 32.2 G/DL (30.0-36.0); MONOCYTE (%) 10.5 % (3-12); NEUTROPHIL (%) 75.4 % (45-76); NEUTROPHIL COUNT 7.4 K/uL (1.8-6.4); PLATELET COUNT 617 K/uL (156-360); RBC DIS.WIDTH-CV 18.5 % (11.8-14.6); RBC DIS.WIDTH-SD 57.4 % (39-53); WHITE BLOOD COUNT 9.8 K/uL (4.1-10.2)
[2018-01-31 06:04] LABS: CHLORIDE 103 MEQ/L (99-109); GFR ESTIMATE (CALCULATED) 25 mL/min/; POTASSIUM 3.9 MEQ/L (3.7-5.4)
[2018-01-31 06:17] LABS: GLUCOSE 120 mg/dL (70-99); SODIUM 133 MEQ/L (136-147); UREA NITROGEN (BUN) 50 mg/dL (9-23)
[2018-01-31 06:19] LABS: HEMOGLOBIN 7.3 G/DL (11.9-15.5); RED BLOOD COUNT 2.44 M/uL (3.80-5.20)
[2018-01-31] MEDS ORDERED: DIOVAN40 MG PO ×2 (15:55→16:03)
[2018-01-31] MEDS ORDERED: LOPRESSOR100 M1 PO (15:55)
[2018-01-31] MEDS ORDERED: IMDUR30 MG PO (15:58)
[2018-01-31] MEDS ORDERED: ASPIR-LOW81 MG PO (15:59)
[2018-02-01] VITALS (8 sets, daily range): BP systolic 109–130; BP diastolic 53–66
== END 2018-02-01 09:25 | disposition home or self-care (01) | DRG 315 ==
LOC: EME 08:58 → 2EAST 12:44 → EDOF 12:44 → ENRESERV 13:02 → 2EAST 14:11
PROVIDERS: Emergency Medicine; Internal Medicine
PROC: 30233N1 Transfusion of Nonautologous Red Blood Cells into Peripheral Vein, Percutaneous Approach (ICD-10-PCS; principal; 2018-01-31)
DX: I23.7 Postinfarction angina (principal); I42.8 Other cardiomyopathies; N39.0 Urinary tract infection, site not specified; D47.3 Essential (hemorrhagic) thrombocythemia; I12.9 Hypertensive chronic kidney disease with stage 1 through stage 4 chronic kidney disease, or unspecified chronic kidney disease; N18.3 Chronic kidney disease, stage 3 (moderate); D46.9 Myelodysplastic syndrome, unspecified; Z82.49 Family history of ischemic heart disease and other diseases of the circulatory system; Z86.718 Personal history of other venous thrombosis and embolism; E03.9 Hypothyroidism, unspecified; Z79.01 Long term (current) use of anticoagulants; I08.0 Rheumatic disorders of both mitral and aortic valves; I25.2 Old myocardial infarction; R19.7 Diarrhea, unspecified
CPT/HCPCS: 71046; 78452; 80048; 80053; 81003; 82803; 83605; 83880; 84484; 85025; 85610; 86850; 86870; 86900; 86901; 86905; 86920; 87040; 87077; 87086; 87186; 87493; 93005; 93017; 99281; 99285; A9500; J0696; J2543; J2785; P9016

== ENCOUNTER 2018-03-11 02:36 | Inpatient (IN) | payer OTHER, BC ==
[~2018-03-11] VITALS: Ht 134.6 cm; Wt 45.1 kg
[2018-03-11] VITALS (17 sets, daily range): BP systolic 87–143; BP diastolic 45–82
[~2018-03-11 02:36] MED LIST changes: +ASPIR-LOW81 MG PO; +DIOVAN40 MG PO; +FUROSEMIDE20 MG PO; +IMDUR30 MG PO; +LOPRESSOR100 M1 PO
[2018-03-11 03:19] LABS: HEMATOCRIT 15.9 % (36.0-46.0); HEMOGLOBIN 5.2 G/DL (11.9-15.5); MCH 30.4 PG (29.0-34.0); MCHC 32.7 G/DL (30.0-36.0); PLATELET COUNT 577 K/uL (156-360); RBC DIS.WIDTH-CV 18.6 % (11.8-14.6); RBC DIS.WIDTH-SD 53.6 % (39-53); RED BLOOD COUNT 1.71 M/uL (3.80-5.20); WHITE BLOOD COUNT 12.2 K/uL (4.1-10.2)
[2018-03-11 03:20] LABS: INTER. NORMALIZED RATIO 1.7
[2018-03-11 03:23] LABS: PTT 33.9 SEC (25-37)
[2018-03-11 03:25] LABS: CHLORIDE 104 mEq/L (99-109); POTASSIUM 4.1 mEq/L (3.7-5.4); SODIUM 138 mEq/L (136-147)
[2018-03-11 03:27] LABS: GLUCOSE 114 mg/dL (70-99)
[2018-03-11 03:31] LABS: CREATININE 1.7 mg/dL (0.6-1.3); GFR ESTIMATE (CALCULATED) 30 mL/min/
[2018-03-11 03:32] LABS: UREA NITROGEN (BUN) 33 mg/dL (9-23)
[2018-03-11 03:38] LABS: TROP-I INTERPRETATION NEGATIVE; TROPONIN-I 0.01 ng/mL (0.0-0.30)
[2018-03-11] MEDS ORDERED: ELIQUIS2.5 MG PO (09:30)
[2018-03-11 11:30] LABS: TROP-I INTERPRETATION INDETERMINATE; TROPONIN-I 0.43 ng/mL (0.0-0.30)
[2018-03-11 19:51] LABS: HEMATOCRIT 30.7 % (36.0-46.0); MCV 91.4 FL (83-99)
[2018-03-11 20:09] LABS: HEMOGLOBIN 10.4 G/DL (11.9-15.5)
[2018-03-11 20:13] LABS: TROP-I INTERPRETATION POSITIVE
[2018-03-11 20:15] LABS: TROPONIN-I 2.25 ng/mL (0.0-0.30)
[2018-03-12 04:37] VITALS: BP 114/58
[2018-03-12 06:24] LABS: TROP-I INTERPRETATION POSITIVE; TROPONIN-I 2.12 ng/mL (0.0-0.30)
[2018-03-12 08:00] VITALS: BP 122/60
[2018-03-12 12:00] VITALS: BP 113/56
[2018-03-12 15:37] VITALS: BP 105/56
[2018-03-12 20:30] VITALS: BP 106/62; BP 110/64
[2018-03-12 23:03] VITALS: BP 102/57
[2018-03-13 00:24] LABS: APPEARANCE TURBID ((CLEAR)); BILIRUBIN NEGATIVE; BLOOD MODERATE; COLOR YELLOW ((YELLOW)); GLUCOSE (STRIP) NEGATIVE; KETONES NEGATIVE; LEUKOCYTES LARGE; NITRITE NEGATIVE; PROTEIN (STRIP) 100; SPECIFIC GRAVITY 1.006 (1.000-1.030); UROBILINOGEN 0.2 MG/DL (0.2-1.0)
[2018-03-13 00:39] LABS: BACTERIA 3+ /HPF; EPITHELIAL CELLS NONE SEEN /HPF; MUCUS NONE SEEN /LPF; RED BLOOD CELLS 20-30 /HPF (0-5); WHITE BLOOD CELLS TNTC /HPF (0-5)
[2018-03-13 03:00] VITALS: BP 107/58
[2018-03-13 06:28] LABS: BASOPHIL COUNT 0.1 K/uL (0-0.1); EOSINOPHIL (%) 1.2 % (0-5); EOSINOPHIL COUNT 0.1 K/uL (0-0.3); HEMATOCRIT 24.9 % (36.0-46.0); IMMATURE GRANULOCYTE (%) 0.5 % (0.0-0.7); LYMPHOCYTE (%) 12.4 % (15-42); LYMPHOCYTE COUNT 1.3 K/uL (1.0-2.8); MCH 30.7 PG (29.0-34.0); MCHC 33.7 G/DL (30.0-36.0); MCV 90.9 FL (83-99); MONOCYTE (%) 12.5 % (3-12); MONOCYTE COUNT 1.3 K/uL (0-0.8); NEUTROPHIL (%) 72.4 % (45-76); NEUTROPHIL COUNT 7.3 K/uL (1.8-6.4); PLATELET COUNT 418 K/uL (156-360); RBC DIS.WIDTH-SD 51.5 % (39-53); WHITE BLOOD COUNT 10.1 K/uL (4.1-10.2)
[2018-03-13 06:29] LABS: HEMOGLOBIN 8.4 G/DL (11.9-15.5); RED BLOOD COUNT 2.74 M/uL (3.80-5.20)
[2018-03-13 07:13] VITALS: BP 116/72
[2018-03-13 11:48] VITALS: BP 136/72
[2018-03-13 15:09] VITALS: BP 100/55
[2018-03-13 19:13] VITALS: BP 100/53
[2018-03-13 23:56] VITALS: BP 98/51
[2018-03-14 04:13] VITALS: BP 127/60
[2018-03-14 06:24] LABS: HEMATOCRIT 24.8 % (36.0-46.0); HEMOGLOBIN 8.6 G/DL (11.9-15.5); MCH 31.6 PG (29.0-34.0); MCHC 34.7 G/DL (30.0-36.0); MCV 91.2 FL (83-99); PLATELET COUNT 412 K/uL (156-360); RBC DIS.WIDTH-CV 17.1 % (11.8-14.6); RBC DIS.WIDTH-SD 52.6 % (39-53); RED BLOOD COUNT 2.72 M/uL (3.80-5.20)
[2018-03-14 07:32] VITALS: BP 112/54
[2018-03-14 11:38] VITALS: BP 99/53
[2018-03-14 16:00] VITALS: BP 107/56
[2018-03-14 20:23] VITALS: BP 120/58
[2018-03-15] VITALS (8 sets, daily range): BP systolic 99–134; BP diastolic 53–62
[2018-03-15 06:34] LABS: HEMATOCRIT 26.8 % (36.0-46.0); HEMOGLOBIN 8.9 G/DL (11.9-15.5); MCH 30.8 PG (29.0-34.0); MCHC 33.2 G/DL (30.0-36.0); MCV 92.7 FL (83-99); PLATELET COUNT 433 K/uL (156-360); RBC DIS.WIDTH-CV 17.3 % (11.8-14.6); RED BLOOD COUNT 2.89 M/uL (3.80-5.20); WHITE BLOOD COUNT 6.8 K/uL (4.1-10.2)
[2018-03-16 04:00] VITALS: BP 137/60
[2018-03-16 06:10] LABS: HEMATOCRIT 31.3 % (36.0-46.0); HEMOGLOBIN 10.2 G/DL (11.9-15.5); MCH 30.8 PG (29.0-34.0); MCHC 32.6 G/DL (30.0-36.0); MCV 94.6 FL (83-99); PLATELET COUNT 541 K/uL (156-360); RBC DIS.WIDTH-CV 17.6 % (11.8-14.6); RBC DIS.WIDTH-SD 55.4 % (39-53); RED BLOOD COUNT 3.31 M/uL (3.80-5.20); WHITE BLOOD COUNT 7.1 K/uL (4.1-10.2)
[2018-03-16 07:45] VITALS: BP 130/67
[2018-03-16] MEDS ORDERED: CEFTIN500 MG PO (10:40)
[2018-03-16 11:32] VITALS: BP 106/56
== END 2018-03-16 13:20 | disposition home or self-care (01) | DRG 811 ==
LOC: EME 02:36 → EDOF 04:53 → 4EAST 04:53 → ENRESERV 05:06 → 4EAST 05:54 → 2EAST 03-13 14:58
PROVIDERS: Emergency Medicine; Family Medicine; Internal Medicine; Internal Medicine Cardiovascular Disease
PROC: 30233N1 Transfusion of Nonautologous Red Blood Cells into Peripheral Vein, Percutaneous Approach (ICD-10-PCS; principal; 2018-03-11)
DX: D46.9 Myelodysplastic syndrome, unspecified (principal); D63.8 Anemia in other chronic diseases classified elsewhere; I21.A1 Myocardial infarction type 2; I20.9 Angina pectoris, unspecified; N39.0 Urinary tract infection, site not specified; B96.20 Unspecified Escherichia coli [E. coli] as the cause of diseases classified elsewhere; D47.3 Essential (hemorrhagic) thrombocythemia; I49.3 Ventricular premature depolarization; I12.9 Hypertensive chronic kidney disease with stage 1 through stage 4 chronic kidney disease, or unspecified chronic kidney disease; N18.3 Chronic kidney disease, stage 3 (moderate); K64.4 Residual hemorrhoidal skin tags; E03.9 Hypothyroidism, unspecified; Z86.718 Personal history of other venous thrombosis and embolism; Z79.01 Long term (current) use of anticoagulants
CPT/HCPCS: 71046; 80048; 81003; 84484; 85014; 85018; 85025; 85027; 85610; 85730; 86850; 86870; 86900; 86901; 86905; 86920; 87086; 87641; 93005; 94799; 99281; 99285; A6214; J0696; P9016